=== PATIENT | male | born 1995 | race Two or more races ===

== ENCOUNTER 2024-04-06 19:18 | Inpatient (IN) | payer OTHER ==
[~2024-04-06] VITALS: Ht 165.1 cm; Wt 49.4 kg
[2024-04-06] MEDS ORDERED: AZITHROMYCIN 500 MG VIAL ONE (19:52)
[2024-04-06] MEDS ORDERED: PIPERACI/TAZO 3.375GM/D5W 50ML PB IV ONE (19:52)
[2024-04-06] MEDS ORDERED: VANCOMYCIN 1 GM /D5W 250 ML PB IV ONE (19:52)
[2024-04-06 19:59] LABS: BASOPHILS % (AUTO) 0.4 % (0.0-2.0); EOSINOPHILS # (AUTO) 0.1 K/uL (0.0-0.7); EOSINOPHILS % (AUTO) 0.6 % (0.0-6.0); HEMATOCRIT 30 % (39-51); HEMOGLOBIN 9.9 g/dL (13.5-17.5); LYMPHOCYTES # (AUTO) 0.7 K/uL (0.8-4.8); LYMPHOCYTES % (AUTO) 7.3 % (20.0-44.0); MEAN CORPUSCULAR HEMOGLOBIN 30 PG (26.0-33.0); MEAN CORPUSCULAR HGB CONC 33 g/dl (31.0-36.0); MEAN CORPUSCULAR VOLUME 90 fL (80-96); MONOCYTES # (AUTO) 0.6 K/uL (0.1-1.30); MONOCYTES % (AUTO) 6.8 % (2.0-12.0); NEUTROPHILS # (AUTO) 7.9 K/uL (1.8-8.9); NEUTROPHILS % (AUTO) 84.9 % (43.0-81.0); PLATELET COUNT (AUTO) 302 K/uL (150-450); RED BLOOD CELL COUNT(AUTO) 3.35 MIL/uL (4.5-6.0); RED CELL DISTRIBUTION WIDTH 14.6 % (11.5-15.0); WHITE BLOOD COUNT (AUTO) 9.2 K/uL (4.3-11.0)
[2024-04-06] MEDS: PIPERACILLIN /TAZOBACTAM 3.375 G in IV D5W 50 ML IV ONE (20:05)
[2024-04-06] MEDS: IV NS 0.9% 1,000 ML BAG IV ONE ×2 (20:05→21:50)
[2024-04-06 20:07] LABS: APPEARANCE,URINE CLOUDY (CLEAR); BILIRUBIN,URINE NEGATIVE (NEGATIVE); BLOOD, URINE NEGATIVE Ery/uL (NEGATIVE); COLOR,URINE YELLOW (YELLOW); KETONES,URINE NEGATIVE (NEGATIVE); LEUKOCYTE ESTERASE ,URINE 3+ (NEGATIVE); NITRITE, URINE POSITIVE (NEGATIVE); PH,URINE >8.5 (5.0-8.0); PROTEIN,URINE 3+ mg/dl (NEGATIVE); UGLUCOSE NEGATIVE (NEGATIVE); UROBILINOGEN,URINE 0.2 EU/dL (0.2)
[2024-04-06 20:14] LABS: ALANINE AMINOTRANSFERASE 204 U/L (12-78); ALBUMIN 2.1 g/dL (3.4-5.0); ALKALINE PHOSPHATASE 527 U/L (46-116); ASPARTATE AMINOTRANSFERASE 203 U/L (15-37); BILIRUBIN,DIRECT 0.4 mg/dL (0.0-0.2); BILIRUBIN,TOTAL 0.7 mg/dL (0.2-1.0); CARBON DIOXIDE 22 mmol/L (21-32); CHLORIDE 101 mmol/L (98-107); CREATININE 2.7 mg/dL (0.6-1.3); GLUCOSE 122 mg/dL (74-106); POTASSIUM 4.4 mmol/L (3.5-5.1); SODIUM SERUM 138 mmol/L (136-145); TOTAL PROTEIN, SERUM 6.1 g/dL (6.4-8.2); UREA NITROGEN, BLOOD 56 mg/dL (7-18)
[2024-04-06] MEDS: VANCOMYCIN 1 GM in IV D5W 250 ML IV ONE (20:14)
[2024-04-06 20:18] LABS: ADD URINE CULTURE YES; BACTERIA,URINE Many /HPF (None Seen); RBC,URINE NONE SEEN /HPF (0-2); SQUAMOUS EPITHELIAL CELL,UR Few /HPF (None Seen)
[2024-04-06 20:19] LABS: TRIPLE PHOSPHATE CRYSTAL,UR Few /HPF (None Seen)
[2024-04-06 20:21] LABS: INR 1.12 (0.91-1.10); LACTIC ACID 5.1 mmol/L (0.4-2.0); PARTIAL THROMBOPLASTIN TIME 30.9 SEC (24.3-34.3); PROTHROMBIN TIME 11.8 SECS (9.2-11.1)
[2024-04-06] MEDS: AZITHROMYCIN 500 MG in IV D5W 250 ML IV ONE (21:30)
[2024-04-06 21:32] LABS: ABG BASE EXCESS -7.3 mmol/L (-2.0-3.0); ABG OXYGEN SATURATION 96.2 % (94.0-98.0); ABG PCO2 32.6 mmHg (35.0-48.0); ABG PH 7.347 (7.350-7.450); ABG PO2 90.3 mmHg (83.0-108.0); ABG TOTAL HEMOGLOBIN 10.4 G/dL (13.5-17.5); COHb 0.2 % (0.5-1.5); MetHb 0.3 % (0.0-1.5); O2Hb 95.7 % (94.0-97.0); PEEP,BG 5 cm H2O; SITE, ABG RIGHT BRACHIAL; VT, ABG 500 mL
[2024-04-06] MEDS ORDERED: NOREPINEPHRINE 8MG/250ML RTU 250 ML IV ONE (23:20)
[2024-04-06] MEDS ORDERED: ONDANSETRON HCL/PF 4 MG/2 ML VIAL IVP PRN (23:30)
[2024-04-06] MEDS ORDERED: MAGNESIUM HYDROXIDE 30 ML UDC PO PRN (23:30)
[2024-04-06] MEDS ORDERED: Z GUARD REMEDY 4 OZ OINT TP PRN (23:30)
[2024-04-07] VITALS (80 sets, daily range): BP systolic 74–138; BP diastolic 34–65; TEMP 98.3–100.9; O2SAT 91–100
[2024-04-07] MEDS: ACETAMINOPHEN 650 MG/SUPP.RECT RC PRN (01:16)
[2024-04-07] MEDS: NOREPINEPHRINE 8 MG in IV D5W 242 ML IV PRN ×2 (01:19→03:50)
[2024-04-07] MEDS ORDERED: BACL10TA GT (01:54)
[2024-04-07] MEDS ORDERED: ALBU2.5V38 IH (01:54)
[2024-04-07] MEDS ORDERED: METO100T14 GT (01:54)
[2024-04-07] MEDS ORDERED: LACO100T2 GT (01:54)
[2024-04-07] MEDS ORDERED: PHEN125O9 GT (01:54)
[2024-04-07] MEDS ORDERED: MIDO10TA PO (01:54)
[2024-04-07] MEDS ORDERED: SCOP1PAT11 TD (01:54)
[2024-04-07] MEDS ORDERED: DIAZ2TAB GT (01:54)
[2024-04-07] MEDS ORDERED: LEVE100S GT (01:54)
[2024-04-07] MEDS ORDERED: MELA3CAP2 GT (01:54)
[2024-04-07] MEDS ORDERED: OXYC10TA49 GT (01:54)
[2024-04-07] MEDS ORDERED: DILT90TA10 GT (01:54)
[2024-04-07] MEDS ORDERED: LEVA0.6320 IH (01:54)
[2024-04-07] MEDS ORDERED: IBUP-76 GT (01:54)
[2024-04-07] MEDS ORDERED: MULT-1275 GT (01:54)
[2024-04-07] MEDS ORDERED: AMIN30LI66 GT (01:54)
[2024-04-07] MEDS ORDERED: ACET325T53 GT (01:54)
[2024-04-07] MEDS ORDERED: IPRA0.2S9 IH (01:54)
[2024-04-07] MEDS ORDERED: VALP250S3 GT (01:54)
[2024-04-07] MEDS ORDERED: ASCO-495 GT (01:54)
[2024-04-07] MEDS ORDERED: GABA-536 GT (01:54)
[2024-04-07] MEDS ORDERED: ACET-2605 GT (01:54)
[2024-04-07] MEDS: IV NS 0.9% 1,000 ML IV SCH (03:09)
[2024-04-07] MEDS: IV NS 0.9% 250 ML IV PRN (03:18)
[2024-04-07] MEDS: NOREPINEPHRINE 8MG/250ML RTU 250 ML IV ONE ×2 (03:48→06:18)
[2024-04-07] MEDS: PIPERACILLIN /TAZOBACTAM 3.375 G in IV D5W 50 ML IV ONE (04:02)
[2024-04-07] MEDS: PIPERACI/TAZO 3.375GM/D5W 50ML PB IV ONE (04:17)
[2024-04-07] MEDS: BACLOFEN (10 MG) 10 MG TABLET GT SCH (05:59)
[2024-04-07] MEDS: PHENYTOIN SUSP UDC 100 MG/4 ML UDC GT SCH (06:00)
[2024-04-07] MEDS: GABAPENTIN 400 MG CAPSULE GT SCH (06:00)
[2024-04-07] MEDS ORDERED: MEROPENEM 500 MG in IV NS 0.9% 50 ML IV SCH (06:30)
[2024-04-07] MEDS: LEVALBUTEROL HCL NEB 1.25 MG/0.5 ML VIAL.NEB IH SCH (08:16)
[2024-04-07] MEDS: LEVETIRACETAM SOL (5 ML) 100 MG/ML UDC GT SCH (08:29)
[2024-04-07] MEDS: MULTIVITAMINS,THERAGRAN 1 UDTAB TABLET GT SCH (08:30)
[2024-04-07] MEDS: VALPROIC ACID 250 MG/5 ML UDC GT SCH (08:30)
[2024-04-07] MEDS: ASCORBIC ACID 500 MG TABLET NG SCH (08:30)
[2024-04-07] MEDS: DIAZEPAM 2 MG TABLET GT SCH (08:30)
[2024-04-07] MEDS: HEPARIN SODIUM, PORCINE 5000 UNITS/1 ML VIAL SQ SCH (08:31)
[2024-04-07] MEDS: PHENYLEPHRINE 100 MG in IV NS 0.9% 240 ML IV PRN (08:35)
[2024-04-07] MEDS: LACOSAMIDE ORAL SOLN 50 MG/5 ML UDC GT SCH (09:09)
[2024-04-07] MEDS: PROSOURCE / PROSTAT (PYXIS) 30 ML UDC GT SCH (09:09)
[2024-04-07] MEDS: THERAHONEY GEL 1.5 OZ TUBE TP SCH (09:11)
[2024-04-07] MEDS: DAKINS QUARTER STRENGTH (0.125%) 480 ML BOTTLE TOP SCH (09:11)
[2024-04-07] MEDS: PIPERACILLIN /TAZOBACTAM 3.375 G in IV D5W 100 ML IV SCH (10:14)
[2024-04-07 11:23] LABS: BASOPHILS # (AUTO) 0.1 K/uL (0.0-0.2); BASOPHILS % (AUTO) 0.3 % (0.0-2.0); EOSINOPHILS % (AUTO) 0.1 % (0.0-6.0); HEMATOCRIT 29 % (39-51); HEMOGLOBIN 9.3 g/dL (13.5-17.5); LYMPHOCYTES # (AUTO) 0.5 K/uL (0.8-4.8); LYMPHOCYTES % (AUTO) 2.3 % (20.0-44.0); MEAN CORPUSCULAR HEMOGLOBIN 29 PG (26.0-33.0); MEAN CORPUSCULAR HGB CONC 32 g/dl (31.0-36.0); MEAN CORPUSCULAR VOLUME 92 fL (80-96); MONOCYTES # (AUTO) 0.2 K/uL (0.1-1.30); MONOCYTES % (AUTO) 1.1 % (2.0-12.0); NEUTROPHILS # (AUTO) 19.5 K/uL (1.8-8.9); NEUTROPHILS % (AUTO) 96.2 % (43.0-81.0); PLATELET COUNT (AUTO) 253 K/uL (150-450); RED BLOOD CELL COUNT(AUTO) 3.18 MIL/uL (4.5-6.0); RED CELL DISTRIBUTION WIDTH 14.4 % (11.5-15.0); WHITE BLOOD COUNT (AUTO) 20.2 K/uL (4.3-11.0)
[2024-04-07 11:50] LABS: BILIRUBIN,TOTAL 0.8 mg/dL (0.2-1.0); CREATININE 2.3 mg/dL (0.6-1.3); MAGNESIUM 2.4 mg/dL (1.8-2.4); PHOSPHORUS 6.3 mg/dL (2.5-4.9); POTASSIUM 3.9 mmol/L (3.5-5.1); TOTAL PROTEIN, SERUM 5.3 g/dL (6.4-8.2)
[2024-04-07 11:59] LABS: BAND % (MANUAL) 15 % (0.0-5.0); LYMPHOCYTES % (MANUAL) 6 % (16-48); MONOCYTES % (MANUAL) 4 % (0-11.0); MYELOCYTES % 1 % (0-0)
[2024-04-07 12:01] LABS: METAMYELOCYTES % 2 % (0-0); NEUTROPHILS % (MANUAL) 72 (42-76); PLATELET ESTIMATE ADEQUATE
[2024-04-07 12:18] LABS: ALBUMIN 1.4 g/dL (3.4-5.0)
[2024-04-07] MEDS: NOREPINEPHRINE 32 MG in IV NS 0.9% 218 ML IV PRN (12:42)
[2024-04-07] MEDS ORDERED: PIPERACILLIN /TAZOBACTAM 3.375 G in IV D5W 50 ML IV SCH (13:00)
[2024-04-07 15:23] LABS: THYROID STIMULATING HORMONE 0.7 uIU/mL (0.358-3.74)
[2024-04-07] MEDS: AZITHROMYCIN 500 MG in IV D5W 250 ML IV SCH (20:26)
[2024-04-07] MEDS: VANCOMYCIN 750 MG in IV D5W 250 ML IV SCH (20:27)
[2024-04-07] MEDS: ACETAMINOPHEN 650 MG/20.3 ML UDC NG PRN (21:29)
[2024-04-07] MEDS: JEVITY 1.2 CAL 1,000 ML BOTTLE GT PRN (22:02)
[2024-04-07] MEDS: MEROPENEM 500 MG in IV NS 0.9% 50 ML IV ONE (22:27)
[2024-04-07] MEDS: MEROPENEM 500MG/NS 50 ML PB IV ONE (22:53)
[2024-04-08] VITALS (94 sets, daily range): BP systolic 78–142; BP diastolic 35–78; TEMP 98.5–102; O2SAT 89–100
[2024-04-08 05:23] LABS: BILIRUBIN,DIRECT 0.7 mg/dL (0.0-0.2); BILIRUBIN,TOTAL 0.8 mg/dL (0.2-1.0); CALCIUM, SERUM 7.7 mg/dL (8.5-10.1); CREATININE 0.8 mg/dL (0.6-1.3); MAGNESIUM 2.1 mg/dL (1.8-2.4); PHOSPHORUS 3.2 mg/dL (2.5-4.9)
[2024-04-08 05:25] LABS: BASOPHILS % (AUTO) 0.4 % (0.0-2.0); EOSINOPHILS % (AUTO) 0.6 % (0.0-6.0); HEMATOCRIT 26 % (39-51); HEMOGLOBIN 8.7 g/dL (13.5-17.5); LYMPHOCYTES # (AUTO) 0.2 K/uL (0.8-4.8); LYMPHOCYTES % (AUTO) 1.8 % (20.0-44.0); MEAN CORPUSCULAR HEMOGLOBIN 30 PG (26.0-33.0); MEAN CORPUSCULAR HGB CONC 33 g/dl (31.0-36.0); MEAN CORPUSCULAR VOLUME 90 fL (80-96); MONOCYTES # (AUTO) 0.2 K/uL (0.1-1.30); MONOCYTES % (AUTO) 2.3 % (2.0-12.0); NEUTROPHILS # (AUTO) 7.8 K/uL (1.8-8.9); NEUTROPHILS % (AUTO) 94.9 % (43.0-81.0); PLATELET COUNT (AUTO) 159 K/uL (150-450); RED BLOOD CELL COUNT(AUTO) 2.94 MIL/uL (4.5-6.0); RED CELL DISTRIBUTION WIDTH 14.6 % (11.5-15.0); WHITE BLOOD COUNT (AUTO) 8.2 K/uL (4.3-11.0)
[2024-04-08 05:32] LABS: POTASSIUM 2.4 mmol/L (3.5-5.1)
[2024-04-08 05:33] LABS: ALBUMIN 1.2 g/dL (3.4-5.0)
[2024-04-08] MEDS: POTASSIUM CL. PREMIX PERIPHER. 50 ML IV SCH (06:05)
[2024-04-08] MEDS: POTASSIUM CHLORIDE 20 MEQ POWDER PACKET GT SCH (06:05)
[2024-04-08] MEDS: MEROPENEM 500 MG in IV NS 0.9% 50 ML IV SCH (07:26)
[2024-04-08] MEDS: MORPHINE SULFATE INJ 2 MG/ML DISP.SYRIN IM ONE (08:00)
[2024-04-08 08:51] LABS: BAND % (MANUAL) 15 % (0.0-5.0); EOSINOPHILS % (MANUAL) 2 % (0-4); LYMPHOCYTES % (MANUAL) 1 % (16-48); MONOCYTES % (MANUAL) 2 % (0-11.0); NEUTROPHILS % (MANUAL) 80 (42-76); PLATELET ESTIMATE ADEQUATE
[2024-04-08] MEDS: IV NS 0.9% 500 ML IV ONE (09:27)
[2024-04-08] MEDS: METOPROLOL TARTRATE 50 MG TABLET NG SCH (12:04)
[2024-04-08] MEDS: DILTIAZEM HCL 30 MG TABLET GT SCH (12:06)
[2024-04-08] MEDS: VANCOMYCIN 1 GM in IV D5W 250ml IV SCH (21:44)
[2024-04-09] VITALS (95 sets, daily range): BP systolic 105–158; BP diastolic 55–132; TEMP 99.9–101.2; O2SAT 83–100
[2024-04-09] MEDS: IPRATROPIUM NEB FS 0.5 MG/2.5 ML AMPUL.NEB IH PRN (01:51)
[2024-04-09] MEDS: BACLOFEN (10 MG) 10 MG TABLET ONE (04:38)
[2024-04-09 05:18] LABS: BILIRUBIN,TOTAL 1.1 mg/dL (0.2-1.0); CALCIUM, SERUM 8.5 mg/dL (8.5-10.1); CREATININE 0.5 mg/dL (0.6-1.3); MAGNESIUM 1.5 mg/dL (1.8-2.4); PHOSPHORUS 2.6 mg/dL (2.5-4.9); TOTAL PROTEIN, SERUM 5.3 g/dL (6.4-8.2)
[2024-04-09 05:25] LABS: BASOPHILS % (AUTO) 0.1 % (0.0-2.0); EOSINOPHILS % (AUTO) 0.3 % (0.0-6.0); HEMATOCRIT 30 % (39-51); HEMOGLOBIN 9.7 g/dL (13.5-17.5); LYMPHOCYTES # (AUTO) 0.3 K/uL (0.8-4.8); MEAN CORPUSCULAR HEMOGLOBIN 29 PG (26.0-33.0); MEAN CORPUSCULAR HGB CONC 33 g/dl (31.0-36.0); MEAN CORPUSCULAR VOLUME 89 fL (80-96); MONOCYTES # (AUTO) 0.3 K/uL (0.1-1.30); MONOCYTES % (AUTO) 3.8 % (2.0-12.0); NEUTROPHILS # (AUTO) 8.1 K/uL (1.8-8.9); NEUTROPHILS % (AUTO) 91.8 % (43.0-81.0); PLATELET COUNT (AUTO) 131 K/uL (150-450); RED BLOOD CELL COUNT(AUTO) 3.32 MIL/uL (4.5-6.0); WHITE BLOOD COUNT (AUTO) 8.8 K/uL (4.3-11.0)
[2024-04-09 05:29] LABS: ALBUMIN 1.2 g/dL (3.4-5.0); POTASSIUM 2.6 mmol/L (3.5-5.1)
[2024-04-09 06:04] LABS: ABG BASE EXCESS -2.6 mmol/L (-2.0-3.0); ABG OXYGEN SATURATION 96.5 % (94.0-98.0); ABG PCO2 37.8 mmHg (35.0-48.0); ABG PH 7.384 (7.350-7.450); ABG PO2 83.7 mmHg (83.0-108.0); ABG TOTAL HEMOGLOBIN 11.3 G/dL (13.5-17.5); COHb 0.3 % (0.5-1.5); MetHb 0.1 % (0.0-1.5); O2Hb 96.1 % (94.0-97.0); PEEP,BG 5 cm H2O; SITE, ABG RIGHT RADIAL; VT, ABG 500 mL
[2024-04-09] MEDS: POTASSIUM CL. PREMIX PERIPHER. 50 ML IV SCH (06:17)
[2024-04-09] MEDS: POTASSIUM CHLORIDE 20 MEQ POWDER PACKET GT SCH (06:17)
[2024-04-09] MEDS: Magnesium 1GM/D5W 100ML PREMIX 100 ML IV SCH (06:49)
[2024-04-09] MEDS: METOCLOPRAMIDE HCL 10 MG/2 ML VIAL IV SCH (10:26)
[2024-04-09 11:32] LABS: BAND % (MANUAL) 2 % (0.0-5.0); LYMPHOCYTES % (MANUAL) 5 % (16-48); MONOCYTES % (MANUAL) 5 % (0-11.0); NEUTROPHILS % (MANUAL) 88 (42-76)
[2024-04-09 11:33] LABS: ANISOCYTOSIS 1+; PLATELET ESTIMATE DECREASED; STOMATOCYTES 1+
[2024-04-09] MEDS ORDERED: POTASSIUM CL IV SCH (17:30)
[2024-04-09] MEDS ORDERED: PERIPHER IV SCH (17:30)
[2024-04-09] MEDS ORDERED: D5W IV SCH (17:30)
[2024-04-09] MEDS: [UNRECOGNIZED DRUG - OTHER] IV SCH (18:25)
[2024-04-09] MEDS: KCL IV SCH (18:25)
[2024-04-09] MEDS: METOPROLOL TARTRATE INJ 5 MG/5 ML AMPUL IV ONE (20:20)
[2024-04-09] MEDS: PROPOFOL 100 ML IV PRN (23:31)
[2024-04-10] VITALS (25 sets, daily range): BP systolic 90–127; BP diastolic 53–81; TEMP 96.4–98.8; O2SAT 92–98
[2024-04-10 04:51] LABS: BASOPHILS % (AUTO) 0.1 % (0.0-2.0); EOSINOPHILS % (AUTO) 0.2 % (0.0-6.0); HEMATOCRIT 31 % (39-51); HEMOGLOBIN 9.9 g/dL (13.5-17.5); LYMPHOCYTES # (AUTO) 0.6 K/uL (0.8-4.8); MEAN CORPUSCULAR HEMOGLOBIN 29 PG (26.0-33.0); MEAN CORPUSCULAR HGB CONC 32 g/dl (31.0-36.0); MEAN CORPUSCULAR VOLUME 91 fL (80-96); MONOCYTES # (AUTO) 0.3 K/uL (0.1-1.30); MONOCYTES % (AUTO) 2.9 % (2.0-12.0); NEUTROPHILS # (AUTO) 9.6 K/uL (1.8-8.9); NEUTROPHILS % (AUTO) 90.8 % (43.0-81.0); PLATELET COUNT (AUTO) 106 K/uL (150-450); RED BLOOD CELL COUNT(AUTO) 3.38 MIL/uL (4.5-6.0); RED CELL DISTRIBUTION WIDTH 14.5 % (11.5-15.0); WHITE BLOOD COUNT (AUTO) 10.5 K/uL (4.3-11.0)
[2024-04-10 05:33] LABS: CALCIUM, SERUM 8.4 mg/dL (8.5-10.1); CREATININE 0.4 mg/dL (0.6-1.3); POTASSIUM 4.1 mmol/L (3.5-5.1)
[2024-04-10 05:40] LABS: BILIRUBIN,TOTAL 0.8 mg/dL (0.2-1.0); MAGNESIUM 1.5 mg/dL (1.8-2.4); PHOSPHORUS 4.4 mg/dL (2.5-4.9); TOTAL PROTEIN, SERUM 5.1 g/dL (6.4-8.2)
[2024-04-10 05:43] LABS: ALBUMIN 1.1 g/dL (3.4-5.0)
[2024-04-10] MEDS: MAGNESIUM OXIDE 400 MG TABLET GT ONE (10:30)
[2024-04-10] MEDS: Magnesium 1GM/D5W 100ML PREMIX 100 ML IV SCH (12:08)
[2024-04-10] MEDS: VANCOMYCIN 1 GM in IV D5W 250 ML IV SCH (17:26)
[2024-04-11] VITALS (24 sets, daily range): BP systolic 91–137; BP diastolic 54–95; TEMP 97.6–102; O2SAT 90–98
[2024-04-11] MEDS ORDERED: BACLOFEN (10 MG) 10 MG TABLET ONE (04:26)
[2024-04-11 04:37] LABS: BASOPHILS % (AUTO) 0.2 % (0.0-2.0); EOSINOPHILS # (AUTO) 0.1 K/uL (0.0-0.7); EOSINOPHILS % (AUTO) 0.7 % (0.0-6.0); HEMATOCRIT 31 % (39-51); HEMOGLOBIN 9.7 g/dL (13.5-17.5); LYMPHOCYTES # (AUTO) 0.9 K/uL (0.8-4.8); LYMPHOCYTES % (AUTO) 9.6 % (20.0-44.0); MEAN CORPUSCULAR HEMOGLOBIN 29 PG (26.0-33.0); MEAN CORPUSCULAR HGB CONC 32 g/dl (31.0-36.0); MEAN CORPUSCULAR VOLUME 92 fL (80-96); MONOCYTES # (AUTO) 0.4 K/uL (0.1-1.30); MONOCYTES % (AUTO) 4.5 % (2.0-12.0); NEUTROPHILS # (AUTO) 7.7 K/uL (1.8-8.9); PLATELET COUNT (AUTO) 86 K/uL (150-450); RED BLOOD CELL COUNT(AUTO) 3.35 MIL/uL (4.5-6.0); RED CELL DISTRIBUTION WIDTH 14.5 % (11.5-15.0); WHITE BLOOD COUNT (AUTO) 9.1 K/uL (4.3-11.0)
[2024-04-11 04:48] LABS: BILIRUBIN,TOTAL 0.8 mg/dL (0.2-1.0); CALCIUM, SERUM 8.3 mg/dL (8.5-10.1); CREATININE 0.3 mg/dL (0.6-1.3); MAGNESIUM 1.3 mg/dL (1.8-2.4); PHOSPHORUS 3.3 mg/dL (2.5-4.9); POTASSIUM 5.3 mmol/L (3.5-5.1); TOTAL PROTEIN, SERUM 4.7 g/dL (6.4-8.2)
[2024-04-11 05:31] LABS: LYMPHOCYTES % (MANUAL) 9 % (16-48); MONOCYTES % (MANUAL) 5 % (0-11.0); NEUTROPHILS % (MANUAL) 86 (42-76); PLATELET ESTIMATE DECREASED
[2024-04-11 05:32] LABS: ANISOCYTOSIS 1+
[2024-04-11] MEDS: Magnesium 1GM/D5W 100ML PREMIX 100 ML IV SCH (09:45)
[2024-04-12] VITALS (35 sets, daily range): BP systolic 110–159; BP diastolic 77–108; TEMP 98.5–99.8; O2SAT 92–99
[2024-04-12 04:49] LABS: BILIRUBIN,TOTAL 1.6 mg/dL (0.2-1.0); CALCIUM, SERUM 7.8 mg/dL (8.5-10.1); CREATININE 0.3 mg/dL (0.6-1.3); PHOSPHORUS 2.8 mg/dL (2.5-4.9); POTASSIUM 4.1 mmol/L (3.5-5.1); TOTAL PROTEIN, SERUM 4.9 g/dL (6.4-8.2)
[2024-04-12 04:59] LABS: BASOPHILS % (AUTO) 0.4 % (0.0-2.0); EOSINOPHILS # (AUTO) 0.1 K/uL (0.0-0.7); EOSINOPHILS % (AUTO) 0.5 % (0.0-6.0); HEMATOCRIT 25 % (39-51); HEMOGLOBIN 8.3 g/dL (13.5-17.5); LYMPHOCYTES % (AUTO) 9.7 % (20.0-44.0); MEAN CORPUSCULAR HEMOGLOBIN 29 PG (26.0-33.0); MEAN CORPUSCULAR HGB CONC 33 g/dl (31.0-36.0); MEAN CORPUSCULAR VOLUME 87 fL (80-96); MONOCYTES # (AUTO) 0.5 K/uL (0.1-1.30); MONOCYTES % (AUTO) 4.4 % (2.0-12.0); NEUTROPHILS # (AUTO) 8.8 K/uL (1.8-8.9); PLATELET COUNT (AUTO) 103 K/uL (150-450); RED CELL DISTRIBUTION WIDTH 13.7 % (11.5-15.0); WHITE BLOOD COUNT (AUTO) 10.4 K/uL (4.3-11.0)
[2024-04-12 06:10] LABS: ALBUMIN 1.1 g/dL (3.4-5.0)
[2024-04-12 06:26] LABS: LYMPHOCYTES % (MANUAL) 13 % (16-48); MONOCYTES % (MANUAL) 3 % (0-11.0); NEUTROPHILS % (MANUAL) 84 (42-76); PLATELET ESTIMATE DECREASED; STOMATOCYTES 1+
[2024-04-12] MEDS ORDERED: Magnesium 1GM/D5W 100ML PREMIX PIGGYBACK IV ONE (09:30)
[2024-04-12] MEDS: Magnesium 1GM/D5W 100ML PREMIX 100 ML IV SCH (10:13)
[2024-04-12] MEDS: VANCOMYCIN 1 GM in IV D5W 250ml IV SCH (17:59)
[2024-04-12] MEDS: MAGNESIUM OXIDE 400 MG TABLET PO ONE (18:13)
[2024-04-12 18:50] LABS: CHOLESTEROL 82 mg/dL (<200); HDL CHOLESTEROL 13 mg/dL (40-60); LDL 43 mg/dL (0-99); TRIGLYCERIDES 133 mg/dL (30-150)
[2024-04-13] VITALS (56 sets, daily range): BP systolic 105–138; BP diastolic 64–115; TEMP 99.2–101.8; O2SAT 91–100
[2024-04-13 04:53] LABS: CALCIUM, SERUM 7.6 mg/dL (8.5-10.1); CREATININE 0.3 mg/dL (0.6-1.3); POTASSIUM 3.1 mmol/L (3.5-5.1)
[2024-04-13] MEDS ORDERED: POTASSIUM CHLORIDE 20 MEQ POWDER PACKET GT ONE (05:30)
[2024-04-13] MEDS: Magnesium 1GM/D5W 100ML PREMIX 100 ML IV SCH ×2 (06:09→21:52)
[2024-04-13] MEDS: POTASSIUM CL. PREMIX PERIPHER. 50 ML IV SCH (06:10)
[2024-04-13 16:14] LABS: CALCIUM, SERUM 7.3 mg/dL (8.5-10.1); CREATININE 0.4 mg/dL (0.6-1.3); MAGNESIUM 1.4 mg/dL (1.8-2.4); PHOSPHORUS 2.7 mg/dL (2.5-4.9); POTASSIUM 4.2 mmol/L (3.5-5.1)
[2024-04-14] VITALS (31 sets, daily range): BP systolic 92–145; BP diastolic 48–103; TEMP 97.1–100; O2SAT 94–100
[2024-04-14 05:29] LABS: CALCIUM, SERUM 7.8 mg/dL (8.5-10.1); CREATININE 0.2 mg/dL (0.6-1.3); PHOSPHORUS 4.2 mg/dL (2.5-4.9); POTASSIUM 3.5 mmol/L (3.5-5.1)
[2024-04-14 08:13] LABS: BASOPHILS % (AUTO) 0.3 % (0.0-2.0); EOSINOPHILS # (AUTO) 0.8 K/uL (0.0-0.7); EOSINOPHILS % (AUTO) 4.4 % (0.0-6.0); HEMATOCRIT 27 % (39-51); HEMOGLOBIN 8.6 g/dL (13.5-17.5); LYMPHOCYTES # (AUTO) 1.2 K/uL (0.8-4.8); MEAN CORPUSCULAR HEMOGLOBIN 28 PG (26.0-33.0); MEAN CORPUSCULAR HGB CONC 32 g/dl (31.0-36.0); MEAN CORPUSCULAR VOLUME 88 fL (80-96); MONOCYTES # (AUTO) 1.1 K/uL (0.1-1.30); MONOCYTES % (AUTO) 6.4 % (2.0-12.0); NEUTROPHILS # (AUTO) 14.1 K/uL (1.8-8.9); NEUTROPHILS % (AUTO) 81.9 % (43.0-81.0); PLATELET COUNT (AUTO) 249 K/uL (150-450); RED CELL DISTRIBUTION WIDTH 13.5 % (11.5-15.0); WHITE BLOOD COUNT (AUTO) 17.2 K/uL (4.3-11.0)
[2024-04-14] MEDS ORDERED: CEFEPIME 1 GM in IV D5W 50 ML IV SCH (21:30)
[2024-04-14] MEDS: METRONIDAZOLE 500 MG TABLET PO SCH (21:49)
[2024-04-14] MEDS: METRONIDAZOLE 500MG/ NS 100ML 100 ML IV ONE (21:51)
[2024-04-15] VITALS (29 sets, daily range): BP systolic 97–133; BP diastolic 66–110; TEMP 98.7–100; O2SAT 94–100
[2024-04-15 05:05] LABS: CALCIUM, SERUM 7.7 mg/dL (8.5-10.1); CREATININE 0.2 mg/dL (0.6-1.3); POTASSIUM 3.3 mmol/L (3.5-5.1)
[2024-04-15] MEDS ORDERED: CEFEPIME 1 GM VIAL ONE (05:24)
[2024-04-15] MEDS: CEFEPIME 1 GM in IV D5W 50 ML IV ONE (05:36)
[2024-04-15] MEDS: POTASSIUM CL. PREMIX PERIPHER. 50 ML IV SCH (10:00)
[2024-04-15] MEDS: CEFEPIME 2 GM in IV D5W 100 ML IV SCH (12:00)
[2024-04-16] VITALS (28 sets, daily range): BP systolic 99–136; BP diastolic 63–97; TEMP 99.1–100.7; O2SAT 95–100
[2024-04-16] MEDS: VANCOMYCIN 1 GM in IV D5W 250 ML IV ONE (00:11)
[2024-04-16] MEDS: VANCOMYCIN 1 GM /D5W 250 ML PB IV ONE (00:11)
[2024-04-16 04:59] LABS: BASOPHILS % (AUTO) 0.2 % (0.0-2.0); EOSINOPHILS # (AUTO) 0.7 K/uL (0.0-0.7); EOSINOPHILS % (AUTO) 4.2 % (0.0-6.0); HEMATOCRIT 24 % (39-51); HEMOGLOBIN 7.8 g/dL (13.5-17.5); LYMPHOCYTES # (AUTO) 1.4 K/uL (0.8-4.8); LYMPHOCYTES % (AUTO) 8.1 % (20.0-44.0); MEAN CORPUSCULAR HEMOGLOBIN 28 PG (26.0-33.0); MEAN CORPUSCULAR HGB CONC 33 g/dl (31.0-36.0); MEAN CORPUSCULAR VOLUME 87 fL (80-96); MONOCYTES # (AUTO) 1.1 K/uL (0.1-1.30); MONOCYTES % (AUTO) 6.2 % (2.0-12.0); NEUTROPHILS # (AUTO) 14.2 K/uL (1.8-8.9); NEUTROPHILS % (AUTO) 81.3 % (43.0-81.0); PLATELET COUNT (AUTO) 399 K/uL (150-450); RED BLOOD CELL COUNT(AUTO) 2.76 MIL/uL (4.5-6.0); WHITE BLOOD COUNT (AUTO) 17.5 K/uL (4.3-11.0)
[2024-04-16 05:19] LABS: CALCIUM, SERUM 7.7 mg/dL (8.5-10.1); CREATININE 0.3 mg/dL (0.6-1.3); POTASSIUM 3.8 mmol/L (3.5-5.1)
[2024-04-16] MEDS: ALBUTEROL FS 2.5 MG/3 ML VIAL.NEB IH PRN (07:47)
[2024-04-16] MEDS: VANCOMYCIN 750 MG in IV D5W 250 ML IV SCH (08:49)
[2024-04-17] VITALS (23 sets, daily range): BP systolic 110–141; BP diastolic 71–100; TEMP 98.1–100; O2SAT 94–100
[2024-04-17 04:45] LABS: CALCIUM, SERUM 7.7 mg/dL (8.5-10.1); CREATININE 0.3 mg/dL (0.6-1.3); POTASSIUM 3.8 mmol/L (3.5-5.1)
[2024-04-17 05:46] LABS: ABG BASE EXCESS 6.4 mmol/L (-2.0-3.0); ABG OXYGEN SATURATION 96.7 % (94.0-98.0); ABG PCO2 48.5 mmHg (35.0-48.0); ABG PO2 89.5 mmHg (83.0-108.0); ABG TOTAL HEMOGLOBIN 9.2 G/dL (13.5-17.5); COHb 0.2 % (0.5-1.5); MetHb 0.3 % (0.0-1.5); O2Hb 96.2 % (94.0-97.0); PEEP,BG 5 cm H2O; SITE, ABG RIGHT RADIAL; VT, ABG 500 mL
[2024-04-17] MEDS: IV NS 0.9% 500 ML IV ONE (21:13)
[2024-04-18] VITALS: BP 113/72; TEMP 102; O2SAT 96
[2024-04-18 04:00] VITALS: BP 128/84; TEMP 98.9; O2SAT 96
[2024-04-18 08:00] VITALS: BP 118/72; TEMP 98.6; O2SAT 96
[2024-04-18 09:12] LABS: CALCIUM, SERUM 7.7 mg/dL (8.5-10.1); CREATININE 0.3 mg/dL (0.6-1.3); POTASSIUM 4.2 mmol/L (3.5-5.1)
[2024-04-18 12:00] VITALS: BP 119/56; TEMP 97.9; O2SAT 97
[2024-04-18 16:00] VITALS: BP 111/61; TEMP 98; O2SAT 98
[2024-04-18 20:00] VITALS: BP 140/87; TEMP 101.1; O2SAT 100
[2024-04-19] VITALS: BP 105/68; TEMP 98.9; O2SAT 100
[2024-04-19 04:00] VITALS: BP 128/79; TEMP 98.9; O2SAT 98
[2024-04-19 08:00] VITALS: BP 136/101; TEMP 98.1; O2SAT 98
[2024-04-19 08:12] LABS: CALCIUM, SERUM 7.4 mg/dL (8.5-10.1); CREATININE 0.3 mg/dL (0.6-1.3); POTASSIUM 4.5 mmol/L (3.5-5.1)
[2024-04-19 12:00] VITALS: BP 135/58; TEMP 98.1; O2SAT 97
[2024-04-19 16:00] VITALS: BP 133/57; TEMP 98.2; O2SAT 97
[2024-04-19 20:00] VITALS: BP 124/86; TEMP 97.9; O2SAT 95
[2024-04-20] VITALS: BP 104/59; TEMP 97.9; O2SAT 97
[2024-04-20 04:00] VITALS: BP 120/66; TEMP 97; O2SAT 100
[2024-04-20 07:19] LABS: BASOPHILS # (AUTO) 0.1 K/uL (0.0-0.2); BASOPHILS % (AUTO) 0.6 % (0.0-2.0); EOSINOPHILS # (AUTO) 0.3 K/uL (0.0-0.7); EOSINOPHILS % (AUTO) 3.6 % (0.0-6.0); HEMATOCRIT 24 % (39-51); HEMOGLOBIN 7.8 g/dL (13.5-17.5); LYMPHOCYTES # (AUTO) 1.3 K/uL (0.8-4.8); LYMPHOCYTES % (AUTO) 13.1 % (20.0-44.0); MEAN CORPUSCULAR HEMOGLOBIN 28 PG (26.0-33.0); MEAN CORPUSCULAR HGB CONC 32 g/dl (31.0-36.0); MEAN CORPUSCULAR VOLUME 88 fL (80-96); MONOCYTES # (AUTO) 1.1 K/uL (0.1-1.30); MONOCYTES % (AUTO) 11.8 % (2.0-12.0); NEUTROPHILS # (AUTO) 6.9 K/uL (1.8-8.9); NEUTROPHILS % (AUTO) 70.9 % (43.0-81.0); PLATELET COUNT (AUTO) 707 K/uL (150-450); RED BLOOD CELL COUNT(AUTO) 2.73 MIL/uL (4.5-6.0); RED CELL DISTRIBUTION WIDTH 13.6 % (11.5-15.0); WHITE BLOOD COUNT (AUTO) 9.7 K/uL (4.3-11.0)
[2024-04-20 07:26] LABS: BILIRUBIN,TOTAL 0.4 mg/dL (0.2-1.0); CALCIUM, SERUM 7.6 mg/dL (8.5-10.1); CREATININE 0.4 mg/dL (0.6-1.3); MAGNESIUM 1.7 mg/dL (1.8-2.4); PHOSPHORUS 4.1 mg/dL (2.5-4.9); TOTAL PROTEIN, SERUM 5.8 g/dL (6.4-8.2)
[2024-04-20 07:36] LABS: ALBUMIN 1.2 g/dL (3.4-5.0)
[2024-04-20 08:00] VITALS: BP 116/72; TEMP 98.1; O2SAT 100
[2024-04-20 12:00] VITALS: BP 110/80; TEMP 99; O2SAT 100
[2024-04-20] MEDS: MAGNESIUM OXIDE 400 MG TABLET GT ONE (12:20)
[2024-04-20 16:00] VITALS: BP 117/69; TEMP 98.4; O2SAT 98
[2024-04-20 20:00] VITALS: BP 143/80; TEMP 98.1; O2SAT 100
[2024-04-20] MEDS: JEVITY 1.2 CAL 1,000 ML BOTTLE GT PRN (22:53)
[2024-04-21] VITALS: BP 141/82; TEMP 98.2; O2SAT 100
[2024-04-21 04:00] VITALS: BP 116/73; TEMP 98.6; O2SAT 100
[2024-04-21 08:00] VITALS: BP 132/78; TEMP 99; O2SAT 100
[2024-04-21 08:10] LABS: CALCIUM, SERUM 7.8 mg/dL (8.5-10.1); CREATININE 0.3 mg/dL (0.6-1.3); POTASSIUM 4.7 mmol/L (3.5-5.1)
[2024-04-21 12:00] VITALS: BP 125/74; TEMP 98.6; O2SAT 100
[2024-04-21 16:00] VITALS: BP 130/82; TEMP 100.2; O2SAT 100
[2024-04-21 20:00] VITALS: BP 143/90; TEMP 98.2; O2SAT 97
[2024-04-22] VITALS: BP 122/67; TEMP 98.4; O2SAT 100
[2024-04-22 04:00] VITALS: BP 112/83; TEMP 97.9; O2SAT 100
[2024-04-22 08:00] VITALS: BP 121/76; TEMP 99.3; O2SAT 100
[2024-04-22 10:09] LABS: CALCIUM, SERUM 7.8 mg/dL (8.5-10.1); CREATININE 0.4 mg/dL (0.6-1.3); POTASSIUM 4.3 mmol/L (3.5-5.1)
[2024-04-22 12:00] VITALS: BP 103/76; TEMP 99.1; O2SAT 97
[2024-04-22 16:00] VITALS: BP 105/75; TEMP 99.3; O2SAT 97
[2024-04-22 20:00] VITALS: BP 131/72; TEMP 98.8; O2SAT 100
[2024-04-22] MEDS: FLUCONAZOLE (100 MG) 100 MG TABLET PO SCH (22:45)
[2024-04-23] VITALS: BP 120/61; TEMP 98.2; O2SAT 98
[2024-04-23 04:00] VITALS: BP 127/73; TEMP 98.6; O2SAT 98
[2024-04-23 07:50] LABS: CALCIUM, SERUM 7.8 mg/dL (8.5-10.1); CREATININE 0.5 mg/dL (0.6-1.3); POTASSIUM 4.6 mmol/L (3.5-5.1)
[2024-04-23 08:00] VITALS: BP 135/77; TEMP 98.6; O2SAT 98
[2024-04-23 12:00] VITALS: BP 120/77; TEMP 98.2; O2SAT 99
[2024-04-23 16:00] VITALS: BP 118/67; TEMP 97.9; O2SAT 99
== END 2024-04-23 16:14 | DRG 673 ==
LOC: ER 19:24 → TRANSITION 04-07 00:54 → ICU 04-07 00:56 → TELE-TD 04-17 18:15 → TELE1 04-18 09:51
PROC: 5A1955Z Respiratory Ventilation, Greater than 96 Consecutive Hours (ICD-10-PCS; principal; 2024-04-07)
PROC: 02HV33Z Insertion of Infusion Device into Superior Vena Cava, Percutaneous Approach (ICD-10-PCS; 2024-04-07)
PROC: B548ZZA Ultrasonography of Superior Vena Cava, Guidance (ICD-10-PCS; 2024-04-07)
PROC: 0KB10ZZ Excision of Facial Muscle, Open Approach (ICD-10-PCS; 2024-04-13)
PROC: 0KBN0ZZ Excision of Right Hip Muscle, Open Approach (ICD-10-PCS; 2024-04-13)
PROC: 0KBP0ZZ Excision of Left Hip Muscle, Open Approach (ICD-10-PCS; 2024-04-13)
PROC: 0JB10ZZ Excision of Face Subcutaneous Tissue and Fascia, Open Approach (ICD-10-PCS; 2024-04-20)
PROC: 0KBP0ZZ Excision of Left Hip Muscle, Open Approach (ICD-10-PCS; 2024-04-20)
PROC: 0KBN0ZZ Excision of Right Hip Muscle, Open Approach (ICD-10-PCS; 2024-04-20)
DX: T83.511A Infection and inflammatory reaction due to indwelling urethral catheter, initial encounter (principal); A41.9 Sepsis, unspecified organism; L89.223 Pressure ulcer of left hip, stage 3; L89.154 Pressure ulcer of sacral region, stage 4; L89.894 Pressure ulcer of other site, stage 4; J15.69 Pneumonia due to other Gram-negative bacteria; R65.21 Severe sepsis with septic shock; J96.01 Acute respiratory failure with hypoxia; E43 Unspecified severe protein-calorie malnutrition; G93.41 Metabolic encephalopathy; N17.0 Acute kidney failure with tubular necrosis; J96.21 Acute and chronic respiratory failure with hypoxia; E87.0 Hyperosmolality and hypernatremia; E87.20 Acidosis, unspecified; R64 Cachexia; Z68.1 Body mass index [BMI] 19.9 or less, adult; G93.1 Anoxic brain damage, not elsewhere classified; J95.851 Ventilator associated pneumonia; D68.59 Other primary thrombophilia; Z99.11 Dependence on respirator [ventilator] status; N39.0 Urinary tract infection, site not specified; B96.89 Other specified bacterial agents as the cause of diseases classified elsewhere; Y84.6 Urinary catheterization as the cause of abnormal reaction of the patient, or of later complication, without mention of misadventure at the time of the procedure; Y92.129 Unspecified place in nursing home as the place of occurrence of the external cause; B96.4 Proteus (mirabilis) (morganii) as the cause of diseases classified elsewhere; D64.9 Anemia, unspecified; E86.0 Dehydration; E87.6 Hypokalemia; E83.42 Hypomagnesemia; E88.09 Other disorders of plasma-protein metabolism, not elsewhere classified; G40.909 Epilepsy, unspecified, not intractable, without status epilepticus; I10 Essential (primary) hypertension; Z74.01 Bed confinement status; R13.10 Dysphagia, unspecified; Z20.822 Contact with and (suspected) exposure to COVID-19; Z93.0 Tracheostomy status; R74.01 Elevation of levels of liver transaminase levels; Z93.1 Gastrostomy status; Y84.8 Other medical procedures as the cause of abnormal reaction of the patient, or of later complication, without mention of misadventure at the time of the procedure; M62.50 Muscle wasting and atrophy, not elsewhere classified, unspecified site; L89.326 Pressure-induced deep tissue damage of left buttock; Z86.74 Personal history of sudden cardiac arrest; B95.8 Unspecified staphylococcus as the cause of diseases classified elsewhere
CPT/HCPCS: 31720; 36415; 36569; 36600; 71045-TC; 74018; 76770-TC; 80048-TC; 80053-TC; 80061-TC; 80076-TC; 80202-TC; 81001; 82803-TC; 83605-TC; 83735-TC; 84100-TC; 84132-TC; 84443-TC; 84478-TC; 84484-TC; 85025-TC; 85730-TC; 86850-TC; 87040-TC; 87081-TC; 87086-TC; 87186-TC; 93307-TC; 94002-TC; 94003-TC; 94640-TC; 94760-TC; 94762-TC; 94799-TC; 99082-TC; A4223; A4623; A6253; A6403; G0378; J0456; J0692; J1644; J1953; J2185; J2270; J2543; J2765; J3370; J3371; J3475; J3480; J3490; J7030; J7040; J7050; J7060; J7070